=== PATIENT | male | born 1950 | race Caucasian/White ===

== ENCOUNTER 2021-09-22 04:17 | Day surgery (SDC) | payer OTHER, MEDICARE ==
[2021-09-21 08:54] VITALS: BMI 27.6
[2021-09-22 11:04] VITALS: TEMP 97.8
[2021-09-22 11:19] VITALS: PULSE 61
[2021-09-22 11:49] VITALS: BP 128/72
== END 2021-09-22 12:08 | disposition home or self-care (01) ==
LOC: JASU-ENDO 04:17
PROVIDERS: ATTEND Internal Medicine Gastroenterology
PROC: 0DB78ZX Excision of Stomach, Pylorus, Via Natural or Artificial Opening Endoscopic, Diagnostic (ICD-10-PCS; 2021-09-22)
PROC: 0DB48ZX Excision of Esophagogastric Junction, Via Natural or Artificial Opening Endoscopic, Diagnostic (ICD-10-PCS; 2021-09-22)
PROC: 0DB98ZX Excision of Duodenum, Via Natural or Artificial Opening Endoscopic, Diagnostic (ICD-10-PCS; principal; 2021-09-22 10:00)
DX: K21.9 Gastro-esophageal reflux disease without esophagitis (principal); K44.9 Diaphragmatic hernia without obstruction or gangrene; K29.80 Duodenitis without bleeding; K29.00 Acute gastritis without bleeding; K31.89 Other diseases of stomach and duodenum
CPT/HCPCS: 88305-TC; 88342-TC